=== PATIENT | female | born 1990 | race Caucasian/White ===

== ENCOUNTER 2018-10-10 15:16 | Emergency (ER) | payer MEDICAID ==
[~2018-10-10] VITALS: Ht 157.5 cm; Wt 58.5 kg
[2018-10-10] MEDS ORDERED: IV NORMAL SALINE 1,000ML 1,000 ML IV ONE (15:45)
[2018-10-10 15:50] LABS: BASO # 0.1 x10^3/uL (0.0-0.2); BASO % 1 % (0-3); EOS % 0 % (0-3); HEMOGLOBIN 12.4 g/dL (12.0-15.5); LYMPH % 7 % (24-48); MEAN CORPUSCULAR HEMOGLOBIN 28 pg (25-35); MEAN CORPUSCULAR HGB CONC 34 g/dL (31-37); MEAN CORPUSCULAR VOLUME 84 fL (79-100); MONO # 0.5 x10^3/uL (0.0-1.1); MONO % 4 % (0-9); NEUT # 12.5 x10^3uL (1.8-7.7); NEUT % 89 % (31-73); PLATELET COUNT 248 x10^3/uL (140-400); RED BLOOD COUNT 4.39 x10^6/uL (3.50-5.40); RED CELL DISTRIBUTION WIDTH 13.3 % (11.5-14.5); WHITE BLOOD COUNT 14.1 x10^3/uL (4.0-11.0)
--- NOTE | 2018-10-10 15:59 | PHYS DOC ---
Adult General Chief Complaint Chief Complaint: NAUSEA/VOMITING/DIARRHEA HPI HPI 28-year-old female presents with nausea, vomiting, and diarrhea since last night. The patient has also had some lower abdominal cramping. She took a test today and it was positive. Her last menstrual period was beginning of August. She is . She denies fever or chills at home. She is visiting her sister and her sister has had nausea and diarrhea as well. She denies vaginal bleeding or discharge. Review of Systems Review of Systems Constitutional: Denies fever or chills [] Eyes: Denies change in visual acuity, redness, or eye pain [] HENT: Denies nasal congestion or sore throat [] Respiratory: Denies cough or shortness of breath [] Cardiovascular: No additional information not addressed in HPI [] GI: Lower abdominal pain, vomiting, diarrhea[] : Denies dysuria or hematuria [] Musculoskeletal: Denies back pain or joint pain [] Integument: Denies rash or skin lesions [] Neurologic: Denies headache, focal weakness or sensory changes [] Endocrine: Denies polyuria or polydipsia [] All other systems were reviewed and found to be within normal limits, except as documented in this note. Current Medications Current Medications Current Medications Medications (Trade) Dose Ordered Sig/Olimpia Start Time Stop Time Status Last Admin Dose Admin Ondansetron HCl (Zofran) 4 mg 1X ONCE 10/10/18 16:00 10/10/18 16:01 Sodium Chloride 1,000 ml @ 1,000 mls/hr 1X ONCE 10/10/18 15:45 10/10/18 16:44 Allergies Allergies Allergies Coded Allergies Type Severity Reaction Last Updated Verified No Known Drug Allergies 10/10/18 No Physical Exam Physical Exam Constitutional: Well developed, well nourished, no acute distress, non-toxic appearance. [] HENT: Normocephalic, atraumatic, bilateral external ears normal, oropharynx moist, no oral exudates, nose normal. [] Eyes: PERRLA, EOMI, conjunctiva normal, no discharge. [] Neck: Normal range of motion, no tenderness, supple, no stridor. [] Cardiovascular:Heart rate regular rhythm, systolic ejection murmur [] Lungs & Thorax: Bilateral breath sounds clear to auscultation [] Abdomen: Bowel sounds normal, soft, no tenderness, no masses, no pulsatile masses. [] Skin: Warm, dry, no erythema, no rash. [] Back: No tenderness, no CVA tenderness. [] Extremities: No tenderness, no cyanosis, no clubbing, ROM intact, no edema. [] Neurologic: Alert and oriented X 3, normal motor function, normal sensory function, no focal deficits noted. [] Psychologic: Affect normal, judgement normal, mood normal. [] Current Patient Data Lab Results Laboratory Tests Test 10/10/18 15:31 White Blood Count 14.1 x10^3/uL (4.0-11.0) H Red Blood Count 4.39 x10^6/uL (3.50-5.40) Hemoglobin 12.4 g/dL (12.0-15.5) Hematocrit 37.0 % (36.0-47.0) Mean Corpuscular Volume 84 fL (79-100) Mean Corpuscular Hemoglobin 28 pg (25-35) Mean Corpuscular Hemoglobin Concent 34 g/dL (31-37) Red Cell Distribution Width 13.3 % (11.5-14.5) Platelet Count 248 x10^3/uL (140-400) Neutrophils (%) (Auto) 89 % (31-73) H Lymphocytes (%) (Auto) 7 % (24-48) L Monocytes (%) (Auto) 4 % (0-9) Eosinophils (%) (Auto) 0 % (0-3) Basophils (%) (Auto) 1 % (0-3) Neutrophils # (Auto) 12.5 x10^3uL (1.8-7.7) H Lymphocytes # (Auto) 1.0 x10^3/uL (1.0-4.8) Monocytes # (Auto) 0.5 x10^3/uL (0.0-1.1) Eosinophils # (Auto) 0.0 x10^3/uL (0.0-0.7) Basophils # (Auto) 0.1 x10^3/uL (0.0-0.2) EKG EKG [] Radiology/Procedures Radiology/Procedures [] Impressions: Examination: PREG 1ST TRIMESTER History: ABDOMINAL PAIN X'S 1 DAY. PT DENIES ANY BLEEDING. VIABLE IUP SEEN MEASURING 7 WEEKS 0 DAY, HEART RATE OF 168 BPM. Comparison/Correlation: None Findings: Transabdominal pelvic ultrasound exam was performed. Single living intrauterine gestation is present with crown-rump length of 0.96 cm corresponding to 7 weeks 0 days gestation. No subchronic hemorrhage. heart rate is 160 bpm a yolk sac identified to measure 0.46 cm diameter. Gestational sac measures 1.19 x 2.16 x 1.7 cm. Myometrium is unremarkable. Uterus measures 8.6 cm x 8.3 cm x 5.9 cm. No pelvic free fluid in cul-de-sac. Right adnexa measures 2.2 cm x 2.18 x 2.7 cm. Right adnexal corpus luteum cystic appearing structure measuring 2 cm x 1.18 x 1.9 cm is present. Left ovary is not visualized. Left menstrual period provided is 09/05/2018 with EDC of 06/08/2019 as result. Ultrasound EDC is 05/29/2019. Impression: Single living intrauterine gestation with crown-rump length corresponding to 7 weeks 0 day gestation by crown-rump length. No suspicious process. Electronically signed by: Gilbert Sheriff MD (10/10/2018 5:25 PM) [facility] DICTATED AND SIGNED BY: GILBERT SHERIFF MD DATE: 10/10/18 1720 CC: MARGE MIRANDA DO; GRACIA,STAFF Course & Med Decision Making Course & Med Decision Making Pertinent Labs and Imaging studies reviewed. (See chart for details) The patient's ultrasound shows a live intrauterine fetus. The patient does have a urinary tract infection. I will treat her with 5 days of Augmentin as she is in the first trimester. I will give her first dose in the ED. [] Dragon Disclaimer Dragon Disclaimer This electronic medical record was generated, in whole or in part, using a voice recognition dictation system. Departure Departure: Referrals: GRACIA,STAFF (PCP) MARGE MIRANDA DO Oct 10, 2018 15:59
[2018-10-10] MEDS ORDERED: ONDANSETRON PF 4 MG/2 ML VIAL. IV ONE (16:00)
[2018-10-10 16:18] LABS: ALBUMIN 3.8 g/dL (3.4-5.0); ALBUMIN/GLOBULIN RATIO 0.9 (1.0-1.7); CALCIUM 8.8 mg/dL (8.5-10.1); CREATININE 0.7 mg/dL (0.6-1.0); GFR 100.4; POTASSIUM 3.5 mmol/L (3.5-5.1); TOTAL BILIRUBIN 0.8 mg/dL (0.2-1.0); TOTAL PROTEIN 7.9 g/dL (6.4-8.2)
[2018-10-10 16:47] LABS: BILIRUBIN,URINE NEG (NEG); CLARITY,URINE CLOUDY; COLOR,URINE YELLOW; GLUCOSE,URINE NEG (NEG); UROBILINOGEN,URINE 0.2 mg/dL (0.2 mg/dL)
[2018-10-10 16:48] LABS: AMORPHOUS SEDIMENT,UR PRESENT /HPF; BACTERIA,URINE MANY /HPF (0-FEW); NITRITE,URINE NEG (NEG); RBC,URINE OCC /HPF (0-2); SQUAMOUS EPITHELIAL CELL,UR MOD /LPF; WBC,URINE >40 /HPF (0-4)
--- NOTE | 2018-10-10 17:28 | RAD ---
Examination: PREG 1ST TRIMESTER History: ABDOMINAL PAIN X'S 1 DAY. PT DENIES ANY BLEEDING. VIABLE IUP SEEN MEASURING 7 WEEKS 0 DAY, HEART RATE OF 168 BPM. Comparison/Correlation: None Findings: Transabdominal pelvic ultrasound exam was performed. Single living intrauterine gestation is present with crown-rump length of 0.96 cm corresponding to 7 weeks 0 days gestation. No subchronic hemorrhage. heart rate is 160 bpm a yolk sac identified to measure 0.46 cm diameter. Gestational sac measures 1.19 x 2.16 x 1.7 cm. Myometrium is unremarkable. Uterus measures 8.6 cm x 8.3 cm x 5.9 cm. No pelvic free fluid in cul-de-sac. Right adnexa measures 2.2 cm x 2.18 x 2.7 cm. Right adnexal corpus luteum cystic appearing structure measuring 2 cm x 1.18 x 1.9 cm is present. Left ovary is not visualized. Left menstrual period provided is 09/05/2018 with EDC of 06/08/2019 as result. Ultrasound EDC is 05/29/2019. Impression: Single living intrauterine gestation with crown-rump length corresponding to 7 weeks 0 day gestation by crown-rump length. No suspicious process. Electronically signed by: Gilbert Palmer MD (10/10/2018 5:25 PM) [facility]
[2018-10-10] MEDS ORDERED: PROM12.56 PO (17:45)
[2018-10-10] MEDS ORDERED: AMOX1TAB61 PO (17:45)
[2018-10-10] MEDS ORDERED: AMOXICILLIN/K CLAV 875/125MG TABLET. PO ONE (18:00)
== END 2018-10-10 18:00 | disposition home or self-care (01) ==
LOC: ER 15:16
DX: O23.41 Unspecified infection of urinary tract in pregnancy, first trimester (principal); O21.9 Vomiting of pregnancy, unspecified; Z3A.01 Less than 8 weeks gestation of pregnancy
CPT/HCPCS: 36415; 76801; 80053; 81001; 84702; 85025; 87086; 96361; 96374; 99285; J2405; J7030